=== PATIENT | male | born 1990 | race African-American/Black ===

== ENCOUNTER 2018-07-02 23:50 | Emergency (ER) | payer OTHER ==
[2018-07-03 00:07] VITALS: BP 171/94; PULSE 70; RESP 20; TEMP 98.9
[2018-07-03] MEDS ORDERED: HYDROcodone/APAP 5-325MG 1 EACH TAB PO STA (01:21)
--- NOTE | 2018-07-03 01:24 | ED ---
General Adult HPI - General Chief complaint: Dental/Oral Stated complaint: DENTAL PAIN Source: patient, family Mode of arrival: ambulatory Limitations: no limitations - Related Data Previous Rx's Medication Instructions Recorded HYDROcodone/APAP 5-325MG [[place] 1 tab PO Q6HR PRN 3 Days #6 tab 07/03/18 5-325] Allergies Allergy/AdvReac Type Severity Reaction Status Date / Time No Known Allergies Allergy Verified 07/03/18 00:07 Review of Systems ROS Statement: Those systems with pertinent positive or pertinent negative responses have been documented in the HPI. ROS Other: All systems not noted in ROS Statement are negative. Past Medical History Past Medical History: No Reported History History of Any Multi-Drug Resistant Organisms: None Reported Past Surgical History: No Surgical Hx Reported Past Psychological History: No Psychological Hx Reported Smoking Status: Never smoker Past Alcohol Use History: None Reported Past Drug Use History: None Reported, Marijuana General Exam Limitations: no limitations Course Vital Signs 07/03/18 00:03 Temperature 98.9 F Pulse Rate 70 Respiratory 20 Rate Blood Pressure 171/94 O2 Sat by Pulse 98 Oximetry Medical Decision Making - Medical Decision Making Dictation was produced using [employer] dictation software. please excuse any grammatical, word or spelling errors. Chief Complaint: 28-year-old male presents with gingival pain. History of Present Illness: She is 28-year-old male presents with gingival pain. Patient 62 been having since for approximately 3-4 weeks. Patient has pain to his teeth. He does see his dentist regularly. Patient reports tenderness to palpation of the gums. Especially the buccal surface of the gingiva. Patient denies any constitutional symptoms. The ROS documented in this emergency department record has been reviewed and confirmed by me. Those systems with pertinent positive or negative responses have been documented in the HPI. All other systems are other negative and/or noncontributory. PHYSICAL EXAM: General Impression: Alert and oriented x3, not in acute distress HEENT: Normocephalic atraumatic, extra-ocular movements intact, pupils equal and reactive to light bilaterally, mucous membranes moist, gingival erythema to the buccal side of the right mandibular and right maxillary gums Cardiovascular: Heart regular rate and rhythm, S1&S2 audible, no murmurs, rubs or gallops Chest: Lungs clear to auscultation bilaterally, no rhonchi, no wheeze, no rales Abdomen: Bowel sounds present, abdomen soft, non-tender, non-distended, no organomegaly Musculoskeletal: Pulses present and equal in all extremities, no peripheral edema Motor: Power 5/5 bilaterally, no focal deficits noted Neurological: CN II-XII grossly intact, no focal motor or sensory deficits noted Skin: Intact with no visualized rashes Psych: Normal affect and mood ED course: 28 male with chief complaint of gingival pain. Clinical presentation consistent with gingivitis. Patient is here for better pain control. At this point there is no indication for antibiotics. She not having any dental symptoms. Patient told to get [id number] mouth rinses containing fluoride. As upon arrival are within acceptable limits. Patient given 1 tablet of [place]. Patient's given some [place] to go home with. He states he will follow up with Dentist early this week. Disposition Clinical Impression: Gingivitis Disposition: HOME SELF-CARE Condition: Good Instructions: Gingivitis (ED) Prescriptions: HYDROcodone/APAP 5-325MG [[place] 5-325] 1 tab PO Q6HR PRN 3 Days #6 tab PRN Reason: Severe Pain Is patient prescribed a controlled substance at d/c from ED?: Yes If prescribed controlled substance>3 days was MAPS reviewed?: Prescribed <3 Days Referrals: None,Stated [Primary Care Provider] - 1-2 days Time of Disposition: 01:24
== END 2018-07-03 01:51 | disposition home or self-care (01) ==
LOC: EC 23:50
DX: K05.10 Chronic gingivitis, plaque induced (principal)
CPT/HCPCS: 99282